=== PATIENT | male | born 1945 | race Caucasian/White ===

== ENCOUNTER 2019-03-04 13:57 | Outpatient (CLI) | payer MEDICARE | END 2019-03-04 23:59 | disposition home or self-care (01) | LOC: LAB 13:57 → RAD 23:59 | PROVIDERS: ATTEND Nurse Practitioner | DX: J43.9 Emphysema, unspecified (principal); E78.2 Mixed hyperlipidemia; I10 Essential (primary) hypertension | CPT/HCPCS: 36415; 71046; 80053; 80061 ==

== ENCOUNTER 2019-03-25 12:17 | Outpatient (CLI) | payer MEDICARE | END 2019-03-25 23:59 | disposition home or self-care (01) | LOC: LAB 12:17 | PROVIDERS: ATTEND Nurse Practitioner | DX: R53.83 Other fatigue (principal) | CPT/HCPCS: 36415; 84443; 85025 ==

== ENCOUNTER 2019-09-17 12:04 | Day surgery (SDC) | payer MEDICARE ==
[~2019-09-17] VITALS: Ht 172.7 cm; Wt 72.4 kg
[2019-09-17 12:39] VITALS: BP 138/77
[2019-09-17] MEDS ORDERED: LACTATED RINGERS 1,000 ML IV SCH (12:41)
[2019-09-17] MEDS ORDERED: ESOM40CA PO (12:49)
[2019-09-17] MEDS ORDERED: MIRT30TA4 PO (12:49)
[2019-09-17] MEDS ORDERED: VERA240C2 PO (12:49)
[2019-09-17] MEDS ORDERED: ALPR1TAB6 PO (12:49)
[2019-09-17] MEDS ORDERED: METO50TA82 PO (12:49)
[2019-09-17] MEDS ORDERED: RANI150C PO (12:49)
[2019-09-17] MEDS ORDERED: ATOR40TA PO (12:49)
[2019-09-17] MEDS ORDERED: ASPI-650 PO (12:49)
[2019-09-17] MEDS ORDERED: BUDE10.2 INH (12:49)
[2019-09-17] MEDS ORDERED: GABA600T7 PO (12:49)
[2019-09-17] MEDS ORDERED: GABA100C PO (12:49)
[2019-09-17] MEDS ORDERED: BUTA-177 PO (12:49)
[2019-09-17] MEDS ORDERED: MONT10TA11 PO (12:49)
[2019-09-17] MEDS ORDERED: RANO10002 PO (12:49)
[2019-09-17] MEDS ORDERED: UMEC1DIS IH (12:49)
[2019-09-17] MEDS ORDERED: CLOT15CR5 SUBD (12:49)
[2019-09-17 13:39] LABS: ANION GAP 6 mmol/L (5-15); CALCIUM 8.9 mg/dL (8.5-10.1); CHLORIDE 111 mmol/L (98-107)
[2019-09-17 13:42] LABS: ALANINE AMINOTRANSFERASE 26 U/L (12-78); ALKALINE PHOSPHATASE 59 U/L (45-117); BILIRUBIN,TOTAL 0.8 mg/dL (0.2-1.0); CREATININE 1.28 mg/dL (0.7-1.3)
[2019-09-17] MEDS ORDERED: PROPOFOL 10 MG/ML, 20ML ONE ×2 (14:11→14:13)
[2019-09-17] MEDS ORDERED: ALBUTEROL/IPRATROPIUM 2.5MG/0.5MG, 3 ML NPPB PRN (14:30)
[2019-09-17] MEDS ORDERED: ALBUTEROL SULFATE 2.5 MG/3 ML NPPB PRN (14:30)
== END 2019-09-17 15:52 | disposition home or self-care (01) ==
LOC: OUT 12:04
PROVIDERS: ATTEND Internal Medicine Gastroenterology
DX: R13.10 Dysphagia, unspecified (principal); K21.9 Gastro-esophageal reflux disease without esophagitis; K29.50 Unspecified chronic gastritis without bleeding; K44.9 Diaphragmatic hernia without obstruction or gangrene; I10 Essential (primary) hypertension; E78.5 Hyperlipidemia, unspecified; I25.10 Atherosclerotic heart disease of native coronary artery without angina pectoris; J43.9 Emphysema, unspecified; Z79.82 Long term (current) use of aspirin; Z79.899 Other long term (current) drug therapy
CPT/HCPCS: 36415; 43239; 80053; 88305; 93005; J2704